=== PATIENT | female | born 1960 | race Hispanic/Latino ===

== ENCOUNTER 2017-02-28 19:51 | Emergency (ER) | payer OTHER, SELFPAY ==
[2017-02-28] MEDS ORDERED: HYDROcodone/Acetaminophen 5/325 mg Tablet ONE (20:14)
[2017-02-28] MEDS ORDERED: Ibuprofen 600 MG TAB ONE (20:14)
== END 2017-02-28 20:46 | disposition home or self-care (01) ==
LOC: MADERS 19:51
DX: S16.1XXA Strain of muscle, fascia and tendon at neck level, initial encounter (principal); E11.9 Type 2 diabetes mellitus without complications; I10 Essential (primary) hypertension; V43.52XA Car driver injured in collision with other type car in traffic accident, initial encounter
CPT/HCPCS: 99283